=== PATIENT | male | born 1965 | race Caucasian/White ===

== ENCOUNTER 2017-06-18 18:28 | Emergency (ER) | payer BC, OTHER ==
--- NOTE | 2017-06-18 19:20 | EDM.PDOC ---
ED HPI GENERAL MEDICAL PROBLEM - General Chief Complaint: Cardiovascular Problem Stated Complaint: PT HAS HIGH BLOOD PRESSURE Time Seen by Provider: 06/18/17 19:05 - History of Present Illness INITIAL COMMENTS - FREE TEXT/NARRATIVE: HISTORY AND PHYSICAL: History of present illness: Patient is a 51-year-old white male presents with a concern of request for medical screening exam due to isolated elevated blood pressure noted at home he denies chest pains were described states he had some mild headache over last day or 2 denies any numbness weakness visual disturbance or other complaints he has no known history of hypertension Review of systems: As per history of present illness and below otherwise all systems reviewed and negative. Past medical history: As per history of present illness and as reviewed below otherwise noncontributory. Surgical history: As per history of present illness and as reviewed below otherwise noncontributory. Social history: No reported history of drug or alcohol abuse. Family history: As per history of present illness and as reviewed below otherwise noncontributory. Physical exam: HEENT: Atraumatic, normocephalic, pupils reactive, negative for conjunctival pallor or scleral icterus, mucous membranes moist, throat clear, neck supple, nontender, trachea midline. Lungs: Clear to auscultation, breath sounds equal bilaterally, chest nontender. Heart: S1S2, regular, negative for clicks, rubs, or JVD. Abdomen: Soft, nondistended, nontender. Negative for masses or hepatosplenomegaly. Negative for costovertebral tenderness. Pelvis: Stable nontender. Genitourinary: Deferred. Rectal: Deferred. Extremities: Atraumatic, negative for cords or calf pain. Neurovascular unremarkable. Neuro: Awake, alert, oriented. Cranial nerves II through XII unremarkable. Cerebellum unremarkable. Motor and sensory unremarkable throughout. Exam nonfocal. Diagnostics: CBC CMP EKG chest x-ray Therapeutics: None Impression: #1 medical screening exam Definitive disposition and diagnosis as appropriate pending reevaluation and review of above. - Related Data Allergies Allergy/AdvReac Type Severity Reaction Status Date / Time succinylcholine Allergy Other Verified 06/18/17 19:02 Home Meds: Home Meds . [No Known Home Meds] 06/18/17 [History] Past Medical History Cardiovascular History: Reports: High Cholesterol Other Cardiovascular History: miranda triglycerides, High LDL Other Dermatologic History: has exzema flare ups - Infectious Disease History Infectious Disease History: Reports: Chicken Pox - Past Surgical History HEENT Surgical History: Reports: Tonsillectomy Social & Family History - Family History Family Medical History: Noncontributory - Tobacco Use Smoking Status *Q: Never Smoker - Caffeine Use Caffeine Use: Reports: Tea - Recreational Drug Use Recreational Drug Use: No ED ROS GENERAL - Review of Systems Review Of Systems: ROS reveals no pertinent complaints other than HPI. ED EXAM, GENERAL - Physical Exam Exam: See Below (See dictation) Course - Vital Signs Last Recorded V/S: Last Vital Signs Temp 36.4 C 06/18/17 18:55 Pulse 69 06/18/17 18:55 Resp 18 06/18/17 18:55 BP 125/89 06/18/17 18:55 Pulse Ox 98 06/18/17 18:55 - Orders/Labs/Meds Orders: Active Orders 24 hr Category Date Time Status EKG Documentation Completion [RC] STAT Care 06/18/17 19:17 Ordered Chest 1V Frontal [CR] Stat Exams 06/18/17 19:17 Ordered CBC WITH AUTO DIFF [HEME] Stat Lab 06/18/17 19:17 Ordered COMPREHENSIVE METABOLIC PN,CMP [CHEM] Stat Lab 06/18/17 19:17 Ordered Departure - Departure Time of Disposition: 19:20 Disposition: Home, Self-Care 01 Condition: Good Clinical Impression: Encounter for medical screening examination Referrals: PCP,None [Primary Care Provider] - Additional Instructions: The following information is given to patients seen in the emergency department who are being discharged to home. This information is to outline your options for follow-up care. We provide all patients seen in our emergency department with a follow-up referral. The need for follow-up, as well as the timing and circumstances, are variable depending upon the specifics of your emergency department visit. If you don't have a primary care physician on staff, we will provide you with a referral. We always advise you to contact your personal physician following an emergency department visit to inform them of the circumstance of the visit and for follow-up with them and/or the need for any referrals to a consulting specialist. The emergency department will also refer you to a specialist when appropriate. This referral assures that you have the opportunity for followup care with a specialist. All of these measure are taken in an effort to provide you with optimal care, which includes your followup. Under all circumstances we always encourage you to contact your private physician who remains a resource for coordinating your care. When calling for followup care, please make the office aware that this follow-up is from your recent emergency room visit. If for any reason you are refused follow-up, please contact the [facility] emergency department at and asked to speak to the emergency department charge nurse. Keep follow-up appointment as scheduled with medical doctor monitor blood pressure as discussed and return as needed as discussed - My Orders Last 24 Hours: My Active Orders 06/18/17 19:17 EKG Documentation Completion [RC] STAT Chest 1V Frontal [CR] Stat CBC WITH AUTO DIFF [HEME] Stat COMPREHENSIVE METABOLIC PN,CMP [CHEM] Stat - Assessment/Plan Last 24 Hours: My Active Orders 06/18/17 19:17 EKG Documentation Completion [RC] STAT Chest 1V Frontal [CR] Stat CBC WITH AUTO DIFF [HEME] Stat COMPREHENSIVE METABOLIC PN,CMP [CHEM] Stat
[2017-06-18 19:49] LABS: CHLORIDE,CL 103 mmol/L (98-107); SODIUM,NA 140 mmol/L (136-148)
--- NOTE | 2017-06-19 08:39 | CR ---
EXAM DATE: 06/18/17 PATIENT'S AGE: 51 Patient: JONO TURNER Facility: [place], [place] Site . Site : 1965 Study: XRay Chest [id number]/30/2018 7:43:29 PM Ordering Physician: Sudhir Newby Final Report: INDICATION: HBP TECHNIQUE: Chest 1 view COMPARISON: None FINDINGS: Cardiovascular and mediastinum: Heart size and vasculature are normal in caliber and appearance. Mediastinum is within normal limits. Lungs and pleural space: No focal consolidation. No sign of pleural effusion. No pneumothorax. Bones and soft tissues: No significant findings. IMPRESSION: No acute cardiopulmonary disease. Dictated by Abbe Lee MD @ 06/18/2017 7:59:15 PM Dictated by: Abbe Lee MD @ 06/18/2017 19:59:22 (Electronic Signature) Report Signed by Proxy. [facility]Norm[facility]
== END 2017-06-18 19:50 | disposition home or self-care (01) ==
LOC: MW.ED 18:28
DX: Z13.9 Encounter for screening, unspecified (principal); I10 Essential (primary) hypertension; E78.00 Pure hypercholesterolemia, unspecified; E78.5 Hyperlipidemia, unspecified; Z88.8 Allergy status to other drugs, medicaments and biological substances
CPT/HCPCS: 36415; 71045; 71045-26; 80053; 85025; 93005; 99282; 99284-25

== ENCOUNTER 2017-08-03 01:05 | Emergency (ER) | payer OTHER ==
[2017-08-03] MEDS ORDERED: Aspirin 81 MG Tab.Chew PO ONE (01:10)
[2017-08-03] MEDS ORDERED: Sodium Chloride 0.9% 1,000 ML IV ONE (01:10)
--- NOTE | 2017-08-03 01:11 | EDM.PDOC ---
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 Some of his symptoms today he attributes to stress and anxiety however at current has no fever nausea vomiting chills sweats no actual chest pain shortness breath headache dizziness palpitation no bowel or urine symptoms, no exertional symptoms Had mild chest pressure that said actually resolved after coming to the emergency room, he did receive proton X Review of systems: As per history of present illness and below otherwise all systems reviewed and negative. Past medical history: As per history of present illness and as reviewed below otherwise noncontributory. Surgical history: As per history of present illness and as reviewed below otherwise noncontributory. Social history: No reported history of drug or alcohol abuse. Family history: As per history of present illness and as reviewed below otherwise noncontributory. Physical exam: HEENT: Atraumatic, normocephalic, pupils reactive, negative for conjunctival pallor or scleral icterus, mucous membranes moist, throat clear, neck supple, nontender, trachea midline. Lungs: Clear to auscultation, breath sounds equal bilaterally, chest nontender. Heart: S1S2, regular, negative for clicks, rubs, or JVD. Abdomen: Soft, nondistended, nontender. Negative for masses or hepatosplenomegaly. Negative for costovertebral tenderness. Pelvis: Stable nontender. Genitourinary: Deferred. Rectal: Deferred. Extremities: Atraumatic, negative for cords or calf pain. Neurovascular unremarkable. Neuro: Awake, alert, oriented. Cranial nerves II through XII unremarkable. Cerebellum unremarkable. Motor and sensory unremarkable throughout. Exam nonfocal. Diagnostics: [CBC CMP UA lipase troponin EKG Chest 1 view] Therapeutics: [Normal saline 1 L bolus Aspirin 324 mg chewable] Tonics 80 mg IV Impression: GERD-symptoms improved/resolved Definitive disposition and diagnosis as appropriate pending reevaluation and review of above. - Related Data Allergies Allergy/AdvReac Type Severity Reaction Status Date / Time succinylcholine Allergy Other Verified 08/03/17 01:12 Home Meds: Home Meds . [No Known Home Meds] 06/18/17 [History] Past Medical History Cardiovascular History: Reports: High Cholesterol Other Cardiovascular History: miranda triglycerides, High LDL Other Dermatologic History: has exzema flare ups - Infectious Disease History Infectious Disease History: Reports: Chicken Pox - Past Surgical History HEENT Surgical History: Reports: Tonsillectomy Social & Family History - Family History Family Medical History: Noncontributory - Caffeine Use Caffeine Use: Reports: Tea ED ROS GENERAL - Review of Systems Review Of Systems: See Below ED EXAM, GENERAL - Physical Exam Exam: See Below Course - Vital Signs Last Recorded V/S: Last Vital Signs Temp 97.6 F 08/03/17 01:10 Pulse 92 08/03/17 01:10 Resp 24 H 08/03/17 01:10 BP 152/90 H 08/03/17 01:10 Pulse Ox - Orders/Labs/Meds Orders: Active Orders 24 hr Category Date Time Status EKG Documentation Completion [RC] STAT Care 08/03/17 01:10 Active Chest 1V Frontal [CR] Stat Exams 08/03/17 01:10 Taken Labs: Laboratory Tests 08/03/17 08/03/17 Range/Units 01:10 01:10 WBC 8.71 (4.0-11.0) K/uL RBC 4.56 (4.50-5.90) M/uL Hgb 14.0 (13.0-17.0) g/dL Hct 41.5 (38.0-50.0) % MCV 91.0 (80.0-98.0) fL MCH 30.7 (27.0-32.0) pg MCHC 33.7 (31.0-37.0) g/dL RDW Std Deviation 43.9 (28.0-62.0) fl RDW Coeff of Edward 13 (11.0-15.0) % Plt Count 152 (150-400) K/uL MPV 10.00 (7.40-12.00) fL Neut % (Auto) 55.5 (48.0-80.0) % Lymph % (Auto) 36.2 (16.0-40.0) % Kaufman % (Auto) 6.5 (0.0-15.0) % Eos % (Auto) 1.6 (0.0-7.0) % Baso % (Auto) 0.2 (0.0-1.5) % Neut # (Auto) 4.8 (1.4-5.7) K/uL Lymph # (Auto) 3.2 H (0.6-2.4) K/uL Kaufman # (Auto) 0.6 (0.0-0.8) K/uL Eos # (Auto) 0.1 (0.0-0.7) K/uL Baso # (Auto) 0.0 (0.0-0.1) K/uL Nucleated RBC % 0.0 /100WBC Nucleated RBCs # 0 K/uL Sodium 140 (136-148) mmol/L Potassium 3.9 (3.5-5.1) mmol/L Chloride 104 (98-107) mmol/L Carbon Dioxide 28.3 (21.0-32.0) mmol/L BUN 23 H (7.0-18.0) mg/dL Creatinine 1.3 (0.8-1.3) mg/dL Est Cr Clr Drug Dosing 77.68 mL/min Estimated GFR (MDRD) 58.7 ml/min Glucose 106 (74-106) mg/dL Calcium 9.4 (8.5-10.1) mg/dL Total Bilirubin 0.3 (0.2-1.0) mg/dL AST 27 (15-37) IU/L ALT 63 (14-63) IU/L Alkaline Phosphatase 99 (46-116) U/L Troponin I < 0.050 (0.000-0.056) ng/mL Total Protein 7.5 (6.4-8.2) g/dL Albumin 4.0 (3.4-5.0) g/dL Globulin 3.5 (2.0-3.5) g/dL Albumin/Globulin Ratio 1.1 L (1.3-2.8) Lipase 121 (73-393) U/L Meds: Medications Discontinued Medications Generic Name Dose Route Start Last Admin Trade Name Waldo PRN Reason Stop Dose Admin Aspirin 324 mg 08/03/17 01:10 08/03/17 01:22 Aspirin PO 08/03/17 01:11 324 mg ONETIME ONE Administration Sodium Chloride 1,000 mls @ 999 mls/hr 08/03/17 01:10 08/03/17 01:21 Normal Saline IV 08/03/17 02:10 999 mls/hr STAT ONE Administration Pantoprazole Sodium 80 mg 08/03/17 01:53 08/03/17 02:05 Protonix Iv IVPUSH 08/03/17 01:54 80 mg .BOLUS ONE Administration Pantoprazole Sodium Confirm 08/03/17 02:02 08/03/17 02:10 Protonix Iv Administered 08/03/17 02:03 Not Given Dose 80 mg .ROUTE .STK-MED ONE Departure - Departure Time of Disposition: 02:19 Disposition: Home, Self-Care 01 Condition: Good Clinical Impression: GERD (gastroesophageal reflux disease) - Discharge Information Referrals: PCP,None [Primary Care Provider] - Forms: ED Department Discharge Additional Instructions: The following information is given to patients seen in the emergency department who are being discharged to home. This information is to outline your options for follow-up care. We provide all patients seen in our emergency department with a follow-up referral. The need for follow-up, as well as the timing and circumstances, are variable depending upon the specifics of your emergency department visit. If you don't have a primary care physician on staff, we will provide you with a referral. We always advise you to contact your personal physician following an emergency department visit to inform them of the circumstance of the visit and for follow-up with them and/or the need for any referrals to a consulting specialist. The emergency department will also refer you to a specialist when appropriate. This referral assures that you have the opportunity for follow-up care with a specialist. All of these measure are taken in an effort to provide you with optimal care, which includes your follow-up. Under all circumstances we always encourage you to contact your private physician who remains a resource for coordinating your care. When calling for follow-up care, please make the office aware that this follow-up is from your recent emergency room visit. If for any reason you are refused follow-up, please contact the [facility] emergency department at and asked to speak to the emergency department charge nurse. - My Orders Last 24 Hours: My Active Orders 08/03/17 01:10 EKG Documentation Completion [RC] STAT Chest 1V Frontal [CR] Stat - Assessment/Plan Last 24 Hours: My Active Orders 08/03/17 01:10 EKG Documentation Completion [RC] STAT Chest 1V Frontal [CR] Stat
[2017-08-03] MEDS ORDERED: Pantoprazole 40 MG Vial IVPUSH ONE (01:53)
[2017-08-03 01:54] LABS: CHLORIDE,CL 104 mmol/L (98-107); SODIUM,NA 140 mmol/L (136-148)
[2017-08-03] MEDS ORDERED: Pantoprazole 40 MG Vial ONE (02:02)
--- NOTE | 2017-08-03 19:18 | CR ---
EXAM DATE: 08/03/17 PATIENT'S AGE: 51 Patient: JONO TURNER Facility: [place], [place] Site . Site : 1965 Study: XRay Chest [id number]/15/2018 1:57:08 AM Ordering Physician: Doctor Iqbal Final Report: Indication: Chest pain Technique: Chest 1 view Comparison: June 18, 2018 Findings/Impression: Cardiovascular and mediastinum: Heart size and vasculature are normal in caliber and appearance. Mediastinum is within normal limits. Lungs and pleural space: Lungs are clear. No sign of infiltrate or mass. No sign of pleural effusion. No pneumothorax. Bones and soft tissues: No significant findings. Dictated by Zeinab Marino MD @ Aug 03 2017 2:36AM (Electronic Signature) Report Signed by Proxy. ILAN
== END 2017-08-03 02:54 | disposition home or self-care (01) ==
LOC: MW.ED 01:05
DX: K21.9 Gastro-esophageal reflux disease without esophagitis (principal); E78.00 Pure hypercholesterolemia, unspecified; Z88.8 Allergy status to other drugs, medicaments and biological substances
CPT/HCPCS: 71045; 80053; 83690; 84484; 85025; 93005; 96361; 96374; 99285; A9270; C9113; J7040; 99283

== ENCOUNTER 2020-01-05 10:00 | Day surgery (SDC) | payer OTHER ==
--- NOTE | 2020-01-05 09:37 | PCM.PREANE ---
Preanesthetic Assessment - Anesthesia/Transfusion/Family Hx Anesthesia History: Prior Anesthesia Without Reaction Type of Anesthesia Reaction: Other (see below) (father has pseudocholinesterase deficiency) Family History of Anesthesia Reaction: No Transfusion History: No Prior Transfusion(s) Intubation History: Unknown - Review of Systems General: No Symptoms Pulmonary: No Symptoms Cardiovascular: No Symptoms Gastrointestinal: Other (hemoccult positive stool test) Neurological: No Symptoms Other: Reports: None - Physical Assessment Height: 5 ft 11 in Weight: 146.964 kg ASA Class: 2 Mental Status: Alert & Oriented x3 Airway Class: Mallampati = 2 Dentition: Reports: Normal Dentition Thyro-Mental Finger Breadths: 3 Mouth Opening Finger Breadths: 3 ROM/Head Extension: Full Lungs: Clear to Auscultation, Normal Respiratory Effort Cardiovascular: Regular Rate, Regular Rhythm - Allergies Allergies/Adverse Reactions: Allergies Allergy/AdvReac Type Severity Reaction Status Date / Time procaine [From Novocain] Allergy "may have Verified 12/30/19 08:31 allergy to" succinylcholine Allergy Other Verified 12/30/19 08:25 - Blood Blood Available: No - Anesthesia Plan Pre-Op Medication Ordered: None - Acknowledgements Anesthesia Type Planned: MAC Pt an Appropriate Candidate for the Planned Anesthesia: Yes Alternatives and Risks of Anesthesia Discussed w Pt/Guardian: Yes Pt/Guardian Understands and Agrees with Anesthesia Plan: Yes PreAnesthesia Questionnaire HEENT History: Reports: None Cardiovascular History: Reports: High Cholesterol, Hypertension Respiratory History: Reports: Sleep Apnea Other Respiratory History: uses CPAP Gastrointestinal History: Reports: GERD Genitourinary History: Reports: None Musculoskeletal History: Reports: Arthritis Neurological History: Reports: Neuropathy, Peripheral Psychiatric History: Reports: None Endocrine/Metabolic History: Reports: Obesity/BMI 30+ Hematologic History: Reports: None Immunologic History: Reports: None Oncologic (Cancer) History: Reports: None Dermatologic History: Reports: None - Infectious Disease History Infectious Disease History: Reports: None - Past Surgical History Head Surgeries/Procedures: Reports: None HEENT Surgical History: Reports: Naso-Sinus Surgery, Tonsillectomy Cardiovascular Surgical History: Reports: None Respiratory Surgical History: Reports: None GI Surgical History: Reports: None Male Surgical History: Reports: None Endocrine Surgical History: Reports: None Neurological Surgical History: Reports: None Musculoskeletal Surgical History: Reports: None Oncologic Surgical History: Reports: None Dermatological Surgical History: Reports: None - SUBSTANCE USE Tobacco Use Within Last Twelve Months: Other (See Below) - HOME MEDS Home Medications: Home Meds Celecoxib [CeleBREX] 200 mg PO DAILY 12/30/19 [History] Cholecalciferol (Vitamin D3) [Vitamin D3] 2,000 units PO DAILY 12/30/19 [History] Cyanocobalamin (Vitamin B12) [Vitamin B12] 1,000 mcg PO DAILY 12/30/19 [History] Gabapentin [Neurontin] 300 mg PO BID 12/30/19 [History] Multivit-Min/FA/Lycopen/Lutein [Centrum Silver Men Tablet] 1 tab PO DAILY 12/30/19 [History] Omeprazole 20 mg PO DAILY 12/30/19 [History] Propranolol HCl 40 mg PO DAILY 12/30/19 [History] Testosterone Cypionate 1 injection IM ASDIRECTED 12/30/19 [History] hydroCHLOROthiazide [Hydrochlorothiazide] 50 mg PO DAILY 12/30/19 [History] - CURRENT (IN HOUSE) MEDS Current Meds: Current Medications Lactated Ringer's (Ringers, Lactated) 1,000 mls @ 125 mls/hr IV ASDIRECTED SAUL
[~2020-01-05 10:00] MED LIST: Lactated Ringers 1,000 ML IV SCH
[2020-01-05] MEDS ORDERED: fentaNYL 100 MCG/2 ML SDV ONE (10:15)
[2020-01-05] MEDS ORDERED: Midazolam 1 MG/ML 2 ML SDV ONE (10:15)
[2020-01-05] MEDS ORDERED: Propofol 200 MG/20 ML SDV ONE ×4 (10:15→11:36)
[2020-01-05] MEDS ORDERED: Ketamine 500 mg/10 ML MDV ONE (10:50)
--- NOTE | 2020-01-05 12:08 | PCM.POSTAN ---
POST ANESTHESIA ASSESSMENT - MENTAL STATUS Mental Status: Alert, Oriented - VITAL SIGNS Vital Signs: Last Vital Signs Temp 37.2 C 01/05/20 09:15 Pulse 91 01/05/20 12:00 Resp 14 01/05/20 12:00 BP 134/72 01/05/20 12:00 Pulse Ox 94 L 01/05/20 12:00 - RESPIRATORY Respiratory Status: Respiratory Rate WNL, Airway Patent, O2 Saturation Stable - CARDIOVASCULAR CV Status: Pulse Rate WNL, Blood Pressure Stable - GASTROINTESTINAL GI Status: No Symptoms - PAIN Pain Score: 0 - POST OP HYDRATION Hydration Status: Adequate & Stable - OBSERVATIONS Free Text/Narrative:: No anesthesia problems
--- NOTE | 2020-01-05 12:11 | PCM.OPNOTE ---
- General Post-Op/Procedure Note Date of Surgery/Procedure: 01/05/20 Operative Procedure(s): Esophagogastroduodenoscopy with biopsy. Colonoscopy with cold distal sigmoid/proximal rectal polypectomy Pre Op Diagnosis: Progressive heartburn with gastroesophageal reflux disease. Hemoccult-positive stool. Post-Op Diagnosis: Mild to moderate chronic gastritis. Distal sigmoid/proximal rectal polyp. Anesthesia Technique: MAC (ASA III) Primary Surgeon: Tani Angeles Track Car Operator: Bertha Davis Condition: Good Free Text/Narrative:: Intake & Output 01/05/20 01/05/20 01/05/20 03:59 11:59 19:59 Intake Total 600 Balance 600 DICTATION [id number] CPT CODE 99596/[id number]
[2020-01-05] MEDS ORDERED: Lactated Ringers 1,000 ML IV SCH (12:15)
--- NOTE | 2020-01-05 12:45 | PCM48HPAN ---
Post Anesthesia Note - EVALUATION WITHIN 48HRS OF ANESTHETIC Vital Signs in Normal Range: Yes Patient Participated in Evaluation: Yes Respiratory Function Stable: Yes Airway Patent: Yes Cardiovascular Function Stable: Yes Hydration Status Stable: Yes Pain Control Satisfactory: Yes Nausea and Vomiting Control Satisfactory: Yes Mental Status Recovered: Yes Vital Signs: Last Vital Signs Temp 36.4 C 01/05/20 12:05 Pulse 79 01/05/20 12:05 Resp 16 01/05/20 12:05 BP 127/73 01/05/20 12:05 Pulse Ox 96 01/05/20 12:05 - COMMENTS/OBSERVATIONS Free Text/Narrative:: No anesthesia problems
--- NOTE | 2020-01-05 12:51 | OR ---
SURGEON: Tani Angeles M.D. DATE OF PROCEDURE: 01/05/2020 OPERATION PERFORMED: Esophagogastroduodenoscopy with biopsy. PRIMARY SURGEON: Tani Angeles MD ANESTHESIA: MAC. ASA CLASSIFICATION: III. PREOPERATIVE DIAGNOSES: 1. Chronic and progressive gastroesophageal reflux disease. 2. Hemoccult-positive stool. POSTOPERATIVE DIAGNOSIS: Mild to moderate chronic gastritis. DESCRIPTION OF PROCEDURE: The patient was taken to the endoscopy room and positioned on the endoscopy table in the left lateral decubitus position. Time-out was called for appropriate identification of the patient and procedure. Monitored anesthesia care was provided. The bite block was placed between the patient's teeth. The gastroscope was inserted through the bite block into the oropharynx and advanced without difficulty through the esophagus and stomach into the duodenum where examination was carried out in a retrograde fashion. The duodenum showed no acute inflammatory changes or ulcerations. The stomach did show mild to moderate gastritis. Antral biopsies were obtained to look for the presence of Helicobacter pylori. The gastroscope was then retroflexed to visualize the proximal stomach. No tumors or ulcerations were noted. No significant hiatal hernia was noted. The scope was then straightened and slowly withdrawn, carefully visualizing the greater and lesser curvatures. Again, no ulcerations were noted. The GE junction was well defined and showed no acute inflammatory changes or ulcerations. The esophagus demonstrated good contractility. No mid or proximal lesions were identified. The vocal cords were briefly visualized as the scope was withdrawn and noted to move symmetrically. The gastroscope was then removed with the patient having tolerated this portion of the procedure well. Following colonoscopy, he was taken to recovery room in stable condition. CHAYA / BRENDA /[id number]
--- NOTE | 2020-01-05 13:09 | OR ---
SURGEON: Tani Angeles M.D. DATE OF PROCEDURE: 01/05/2020 OPERATION PERFORMED: Colonoscopy with cold rectal polypectomy. PRIMARY SURGEON: Tani Angeles MD ANESTHESIA: MAC. KITCHENWHERE MAKER: Student Services Advisor: ARISTIDES Carty student. ASA CLASSIFICATION: III. PREOPERATIVE DIAGNOSIS: Hemoccult positive stool. POSTOPERATIVE DIAGNOSIS: Rectal polyp. DESCRIPTION OF PROCEDURE: With the patient having completed upper GI endoscopy, he was maintained in the left lateral decubitus position. The colonoscope was inserted into the rectum and advanced with minimal difficulty to the cecum. The cecum was identified by internal landmarks and external pressure. The colonoscope was retroflexed to visualize the ascending colon from below, then straightened and slowly withdrawn. Cecum, ascending colon, hepatic flexure, transverse colon, splenic flexure, descending colon, and sigmoid colon were very well visualized. No tumors, polyps, diverticula, or angiodysplastic changes were noted. One small polyp was encountered in the distal sigmoid-proximal rectal area and removed with cold biopsy forceps. No significant bleeding was noted. The colonoscope was then withdrawn to the rectum and retroflexed to visualize the anal orifice from above. Again, no tumors or polyps were seen and there were no acute hemorrhoidal changes. The colonoscope was then straightened, the rectum aspirated, and the colonoscope removed. The patient tolerated the procedure well and was taken to recovery room in stable condition. CHAYA / BRENDA /[id number]
== END 2020-01-05 12:50 | disposition home or self-care (01) ==
LOC: MW.SDS 10:00
PROVIDERS: ATTEND Surgery
DX: D12.5 Benign neoplasm of sigmoid colon (principal); K21.9 Gastro-esophageal reflux disease without esophagitis; I10 Essential (primary) hypertension; G57.90 Unspecified mononeuropathy of unspecified lower limb; M19.90 Unspecified osteoarthritis, unspecified site; E66.01 Morbid (severe) obesity due to excess calories; E78.00 Pure hypercholesterolemia, unspecified; Z68.42 Body mass index [BMI] 45.0-49.9, adult; Z88.8 Allergy status to other drugs, medicaments and biological substances; Z79.899 Other long term (current) drug therapy; Z87.891 Personal history of nicotine dependence
CPT/HCPCS: 43239; 45380; 88305; 88312; J2001; J2250; J2704; J3010; J7120; 00813

== ENCOUNTER 2025-01-23 09:00 | Day surgery (SDC) | payer OTHER ==
[2025-01-23] MEDS ORDERED: Propofol 200 MG/20 ML SDV ONE ×2 (09:13→10:01)
[2025-01-23] MEDS: Lactated Ringers 1,000 ML IV SCH (09:38)
[2025-01-23] MEDS ORDERED: Lactated Ringers 1,000 ML IV SCH (10:15)
== END 2025-01-23 10:58 | disposition home or self-care (01) ==
LOC: MW.SDS 09:00
PROVIDERS: ATTEND Surgery
DX: K62.5 Hemorrhage of anus and rectum (principal); E66.01 Morbid (severe) obesity due to excess calories; I10 Essential (primary) hypertension; Z88.8 Allergy status to other drugs, medicaments and biological substances; Z68.41 Body mass index [BMI] 40.0-44.9, adult; Z79.82 Long term (current) use of aspirin; Z79.899 Other long term (current) drug therapy; Z86.0100 Personal history of colon polyps, unspecified
CPT/HCPCS: 45378; J2003; J2704; J7120; 00811